=== PATIENT | male | born 1960 | race Caucasian/White ===

== ENCOUNTER 2022-02-24 07:00 | Inpatient (IN) | payer OTHER ==
[~2022-02-24] VITALS: Ht 175.3 cm; Wt 95.3 kg
[2022-02-24] MEDS ORDERED: ESCITALOPRAM OX20 MG (13:00)
[2022-02-24] MEDS ORDERED: TRAZODONE HCL150 MG (13:00)
[2022-02-24] MEDS ORDERED: DIVALPROEX SOD250 MG (13:00)
[2022-02-26] MEDS ORDERED: ELIQUIS2.5 MG PO (17:02)
[2022-02-26] MEDS ORDERED: CEFADROXIL500 MG PO (17:02)
[2022-02-26] MEDS ORDERED: PERCOCET 5-3251 EACH PO (17:02)
== END 2022-02-26 21:41 | DRG 470 ==
LOC: SURH 07:00 → SURG 07:07 → O/R 07:07 → SURH 09:00 → SURG 15:29
PROVIDERS: ADMIT Orthopaedic Surgery; ATTEND Orthopaedic Surgery
PROC: 0SR90JZ Replacement of Right Hip Joint with Synthetic Substitute, Open Approach (ICD-10-PCS; principal; 2022-02-24 07:00)
DX: M16.11 Unilateral primary osteoarthritis, right hip (principal); M25.751 Osteophyte, right hip; M70.61 Trochanteric bursitis, right hip